=== PATIENT | female | born 1985 | race American Indian/Alaskan Native ===

== ENCOUNTER 2016-03-13 11:24 | Outpatient (CLI) | payer MEDICAID ==
[2016-03-13] MEDS ORDERED: INFED IM ONE (11:52)
[2016-03-13 12:10] VITALS: BP 124/75
== END 2016-03-13 12:45 | disposition home or self-care (01) ==
LOC: TRG 11:24
PROVIDERS: ATTEND Obstetrics & Gynecology
DX: O77.9 Labor and delivery complicated by fetal stress, unspecified (principal); O47.9 False labor, unspecified; Z3A.00 Weeks of gestation of pregnancy not specified
CPT/HCPCS: 59025; 96372; J1750

== ENCOUNTER 2016-03-18 17:07 | Outpatient (CLI) | payer MEDICAID ==
[2016-03-18] MEDS ORDERED: INFED IM ONE (19:30)
== END 2016-03-18 19:00 | disposition left against medical advice (07) ==
LOC: TRG 17:07
PROVIDERS: ATTEND Obstetrics & Gynecology
DX: Z34.90 Encounter for supervision of normal pregnancy, unspecified, unspecified trimester (principal); Z3A.00 Weeks of gestation of pregnancy not specified
CPT/HCPCS: J1750

== ENCOUNTER 2016-03-20 12:31 | Outpatient (CLI) | payer MEDICAID ==
[2016-03-20] MEDS ORDERED: INFED IM ONE (13:34)
[2016-03-20 14:04] VITALS: BP 134/74
== END 2016-03-20 14:41 | disposition home or self-care (01) ==
LOC: TRG 12:31
PROVIDERS: ATTEND Obstetrics & Gynecology
DX: O47.1 False labor at or after 37 completed weeks of gestation (principal); Z3A.37 37 weeks gestation of pregnancy
CPT/HCPCS: 96372; J1750

== ENCOUNTER 2016-03-25 11:30 | Inpatient (IN) | payer MEDICAID ==
[2016-04-01] MEDS ORDERED: BICITRA PO ONE (05:14)
[2016-04-01] MEDS ORDERED: PEPCID IV ONE (05:14)
[2016-04-01] MEDS ORDERED: REGLAN IV ONE (05:14)
[2016-04-01 05:47] LABS: Basophils % (Auto) 0.5 % (0.0-1.8); Eosinophils % (Auto) 0.6 % (0.0-4.3); Hematocrit 24.7 % (30.3-42.9); Hemoglobin 7.6 gm/dl (10.1-14.3); Mean Corpuscular HGB Conc 31 % (30-34); Platelet Count 294 K/mm3 (140-440); Red Blood Count 3.72 M/mm3 (3.65-5.03); White Blood Count 8.2 K/mm3 (4.5-11.0)
[2016-04-01 05:51] LABS: Mean Corpuscular Hemoglobin 20 pg (28-32); Mean Corpuscular Volume 67 fl (79-97); Red Cell Distribution Width 21.2 % (13.2-15.2)
[2016-04-01] MEDS ORDERED: LACTATED RINGERS 1,000 ML IV SCH (06:00)
[2016-04-01] MEDS ORDERED: PITOCin/NS 20 UNIT/1000ML DRIP 20 UNIT/1,000 ML BAG IV NR (06:00)
[2016-04-01] MEDS ORDERED: ANCEF/STERILE WATER 2 GM/20 ML 2 GM/20 ML SYRINGE IV ONE (06:52)
[2016-04-01] MEDS ORDERED: NACL 0.9% 500 ML 500 ML IV ONE ×2 (07:02→13:16)
[2016-04-01] MEDS ORDERED: NARCAN 0.4 MG/1 ML IV PRN ×2 (07:20→10:57)
[2016-04-01] MEDS ORDERED: DILAUDID IV PRN (07:20)
[2016-04-01] MEDS ORDERED: ZOFRAN IV PRN (07:20)
--- NOTE | 2016-04-01 07:20 | Anesthesia Day of Surgery ---
Anesthesia Day of Surgery - Day of Surgery Patient Examined: Yes Patient H&P Reviewed: Yes Patient is NPO: Yes
--- NOTE | 2016-04-01 07:20 | Anesthesia Consultation ---
Anesthesia Consult and Med Hx Date of service: 04/01/16 - Airway Anesthetic Teeth Evaluation: Good ROM Head & Neck: Adequate Mental/Hyoid Distance: Adequate Mallampati Class: Class II Intubation Access Assessment: Probably Good - Pre-Operative Health Status ASA Pre-Surgery Classification: ASA2 Proposed Anesthetic Plan: Epidural, Spinal - Pulmonary Hx Smoking: No Hx Asthma: No COPD: No Hx Pneumonia: No - Cardiovascular System Hx Hypertension: No - Central Nervous System Hx Seizures: No Hx Psychiatric Problems: No - Gastrointestinal Hx Gastroesophageal Reflux Disease: Yes - Endocrine Hx Renal Disease: No Hx End Stage Renal Disease: No Hx Hypothyroidism: No Hx Hyperthyroidism: No - Hematic Hx Anemia: Yes (requires iron injections) Hx Sickle Cell Disease: No - Other Systems Hx Alcohol Use: No Hx Obesity: Yes (BMI: 46.3)
[2016-04-01] MEDS ORDERED: TORADOL IV PRN (07:21)
--- NOTE | 2016-04-01 07:26 | History and Physical Report ---
History of Present Illness Date of examination: 04/01/16 Date of admission: 04/01/16 05:03 Chief complaint: 3rd repeat LTCS History of present illness: 31-year-old 013 at 39 weeks presents for 3rd repeat , she is a [employer] position. course has been complicated by microcytic anemia requiring parenteral iron. 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 denies: smoking, alcohol abuse, prescription drug abuse, IV drug use - Obstetrical History Expected Date of Delivery: 04/06/16 Actual Gestation: 39 Week(s) 2 Day(s) : 5 Para: 3 Medications and Allergies Allergies Allergy/AdvReac Type Severity Reaction Status Date / Time No Known Allergies Allergy Verified 03/20/16 13:30 Active Meds: Active Medications Hydromorphone HCl (Dilaudid) 0.5 mg IV Q4H PRN PRN Reason: breakthrough pain > 7/10 Lactated Ringer's (Lactated Ringers) 1,000 mls @ 2,250 mls/hr IV PREOP JAZMIN Last Admin: 04/01/16 05:30 Dose: 2,250 mls/hr Oxytocin/Sodium Chloride (Pitocin/Ns 20 Unit/1000ml Drip) 20 unit in 1,000 mls @ 999 mls/hr IV TITR NR Stop: 04/01/16 23:59 Ketorolac Tromethamine (Toradol) 30 mg IV Q6H PRN PRN Reason: Pain, Moderate (4-6) Stop: 04/06/16 07:20 Naloxone HCl (Narcan 0.4 Mg/1 Ml) 0.2 mg IV Q2MIN PRN PRN Reason: Res Rate </= 8 or 02 SAT < 92% Stop: 04/03/16 07:21 Ondansetron HCl (Zofran) 4 mg IV Q8H PRN PRN Reason: Nausea And Vomiting Sodium Chloride (Sodium Chloride Flush Syringe 10 Ml) 10 ml IV PRN NR Review of Systems Constitutional: no fever, no chills Cardiovascular: no chest pain, no orthopnea, no edema, no syncope, no lightheadedness, no shortness of breath, no dyspnea on exertion, no high blood pressure Respiratory: no cough with sputum, no excessive sputum, no hemoptysis, no shortness of breath, no dyspnea on exertion Gastrointestinal: abdominal pain (Intermittent contractions), no nausea, no vomiting, no diarrhea Genitourinary: no vaginal bleeding, no vaginal discharge, no leakage of fluid - Vital Signs Vital signs: Vital Signs Pulse BP Pulse Ox 86 88/63 99 03/20/16 15:06 03/20/16 15:06 03/20/16 15:06 Temp Pulse Resp BP Pulse Ox 98.7 F 93 H 18 88/63 99 04/01/16 05:15 04/01/16 05:52 04/01/16 05:15 03/20/16 15:06 04/01/16 05:52 - Physical Exam Cardiovascular: Regular rate, Normal S1, Normal S2 Lungs: Positive: Clear to auscultation Abdomen: Positive: normal appearance, soft. Negative: tenderness, guarding, rigidity Uterus: Positive: enlarged (Difficult to access due to habitus). Negative: tender Extremities: Positive: normal - Obstetrical FHR: category 1 Results Result Diagrams: 04/01/16 05:30 Abnormal lab results 04/01/16 04/01/16 Range/Units 05:30 05:30 Hgb 7.6 L (10.1-14.3) gm/dl Hct 24.7 L (30.3-42.9) % MCV 67 L (79-97) fl MCH 20 L (28-32) pg RDW 21.2 H (13.2-15.2) % Bowman % (Auto) 8.5 H (0.0-7.3) % Seg Neutrophils % 71.4 H (40.0-70.0) % Crossmatch See Detail All other labs normal. Assessment and Plan A: 31 y/o here for 3rd repeat LTCS and BTL -stable Issues -Morbid obesity -Anemia with Hemoglobin - 7.6 P: -Transfuse 2 units blood cells -She has been consented for third repeat -Proceed to the OR once available - Patient Problems (1) 39 weeks gestation of Current Visit: Yes Status: Acute (2) History of 2 sections Current Visit: Yes Status: Acute
[2016-04-01] MEDS ORDERED: MORPHINE ONE (07:39)
[2016-04-01] MEDS ORDERED: SODIUM CHLORIDE FLUSH SYRINGE 10 ML IV NR (08:00)
--- NOTE | 2016-04-01 08:32 | Admit Criteria Form ---
Admission Criteria Documentation: ANEMIA, IRON DEFICIENCY OR UNSPECIFIED Clinical Indications for Inpatient Care (Place 'X' for any and all applicable criteria): Admission is indicated for ANY ONE of the following(1)(2)(3)(4)(5)(6)(7): [X] I. Inpatient admission required rather than observation care (Also use Anemia, Iron Deficiency or Unspecified: Observation Care guideline as appropriate) because of ANY ONE of the following: [] a) Hemodynamic instability that is severe or persistent [] b) Active bleeding that cannot be rapidly controlled [] c) CVS symptoms (i.e., dyspnea, chest pain, heart failure) that are severe or persistent [] d) Neurologic symptoms (i.e., cognitive impairment, recurrent syncope or near syncope) that are severe or persistent [] e) Cardiac arrhythmias of immediate concern [] f) Acute peripheral ischemia (e.g., pulseless, cool, mottled, or cyanotic extremity) [] g) High-risk low platelet count [] h) Acute renal failure [X] i) Ongoing transfusion for blood loss (greater than 2 units) [] j) IV fluid to replace significant ongoing (eg, >24 hours) losses (> 3 L/m2 per day) [] k) Pulmonary artery catheter monitoring [] l) Supplemental oxygen or respiratory treatments for over 24 hours that are performable only in acute inpatient setting [] m) Immediate inpatient surgery [] n) Other condition, treatment or monitoring requiring inpatient admission [] II Active massive hemorrhage [] III. Active hemolysis with rapidly progressive anemia [A](6) Extended stay beyond goal length of stay may be needed for (17)(18) []a) Diagnosed cause of anemia requiring longer hospitalization (eg, active GI bleeding, immune hemolysis requiring electrophoresis, complications of malignancy requiring acute care []b) Continued emergent anemia indicators (23) []c) Transfusion reactions []d) Associated leukopenia or thrombocytopenia needing inpatient care []e) Active comorbidities (eg, renal failure, heart failure) The original [facility] Care Guidelines content created by [facility] Care Guidelines has been revised. The portions of the content which have been revised are identified through the use of italic text or in bold. [facility] Guidelines has neither reviewed nor approved the modified material. All other unmodified content is copyright [facility] Care Guidelines. Please see references footnoted in the original [facility] edition 2016 Admission Criteria Met: Yes
[2016-04-01] MEDS ORDERED: NACL 0.9% 1000 ML 1,000 ML ONE (08:35)
[2016-04-01] MEDS ORDERED: ZOFRAN ONE (08:37)
[2016-04-01] MEDS ORDERED: WATER FOR IRRIG STERILE IR ONE (08:44)
[2016-04-01] MEDS ORDERED: NACL 0.9% IR ONE (08:44)
--- NOTE | 2016-04-01 10:52 | Operative Report ---
Operative Report Operative Report: DATE: 04/01/2016 PREOPERATIVE DIAGNOSIS: 31-year-old at 39+2 weeks, prior 2, Morbid Obesity, persistent Anemia (Hemoglobin was - 7.6 pre-OP) POSTOP DIAGNOSIS: As above plus Right abnormal-looking ovary ~ 7 cm in size, Adhesions NAME OF PROCEDURE: Repeat low transverse section with bilateral tubal ligation using Filshie clips Right Oophorectomy Adhesiolysis LAXMI drain placement Transfusion of 1 unit PRBC intra-OP SURGEON: KENTRELL HOLLEY MD DUCT LAYER HELPER: [] ANESTHESIA: Combined spinal epidural EBL: 700 mL PATHOLOGY SPECIMEN: Right ovary URINE OUTPUT: 50 cc FINDINGS: Female in cephalic presentation, time of delivery was 9 AM, weight was 7 lbs. 14 oz. or 3571 g, APGARS were 8 and 8, right large ovary estimated 7 cm in size on incision, ovary with solid components. significant adhesions, large amount of bowel loops DESCRIPTION OF PROCEDURE: She was taken to the operating room where she was prepped and draped in a sterile fashion, she was placed in the dorsal supine position. Pfannenstiel incision was performed through her prior incisional scar which was carried through to underlying rectus fascia which was on the midline. The fascial incision was extended laterally with use of Salazar scissors , the anterior leaf was then grasped with Kochers forceps elevated dissected sharply and bluntly off the underlying rectus in a similar fashion inferior leaf was grasped elevated dissected sharply and bluntly off the underlying rectus. The rectus was in the midline, then the peritoneal layer entered carefully. Loops of bowel noted immediately underneath the peritoneal layer. Adhesions noted to anterior abd wall and adhesiolysis performed. Bowel was packed away with gauze to visualize the uterus. A bladder blade was then placed in the patient's pelvic cavity; bladder flap could not be created due to adhesion of the vesoci-uterine reflection of the peritoneum on the lower segment. A hysterotomy incision was then performed in the lower segment with clear amniotic fluid noted, hysterotomy icision was extended laterally with the use of fingers manually. in cephalic presentation was delivered in the usual manner; cord was clamped and cut infant was handed over to waiting nursery staff. The placenta was then delivered manually intact, the uterus was exteriorized cleared of all clots and debris. Hysterotomy incision was then closed in a running locked fashion with 0 Vicryl on a CTX; using the same suture was imbricate the initial layer. Interrupted [id number] stitches were used to obtain hemostasis. We then turned our attention to the fallopian tubes. The right fallopian tube was short compared to the left and appeared partially transected already. Using 2 Filshie clips on each fallopian tube and these were clamped with good blanching noted. Discussed patient's large ovary with her, incision made with bovie demonstrated solid components. She gave permission for oophorectom adn this was performed. Utero-ovarian was grasped with pat's and transected. This was then suture ligated. Specimen was sent to pathology. Uterus was then returned to the patient's pelvic cavity; peritoneal edges were grasped with hemostats and Pat's elevated copiously irrigation was used to clear the gutters of all clots and debris. Tercel hemostatic agent was then applied to the hysterotomy incision as a means to prevent future bleeding, Interceed was then applied into the pelvic cavity as a means to prevent future adhesions. We then observed patient with waht appeared to be clear fluid being produced. This was not bloody or sersanguinous. We spent some time attempting to discover souce of fluid generation. We used lap sponges and position changes to attempt to evacuate all her fluids. No significant bleeding was noted and bladder appeared intact with good drainage in the crespo. Decision was made to pace LAXMI drain. This was perforemed without difficulty. The fascia was then closed in a running fashion with 0 Vicryl and tied in the opposite side. The subcutaneous layer was irrigated and then reapproximated with interrupted [id number] stitches. The skin was closed with cam. She tolerated the procedure well lap and instrument counts were correct 2 she did receive 3 g of Ancef prior to incision she is transferred to PACU in stable condition thank you.
[2016-04-01] MEDS ORDERED: SENOKOT PO PRN (10:57)
[2016-04-01] MEDS ORDERED: MILK OF MAGNESIA PO PRN (10:57)
[2016-04-01] MEDS ORDERED: MYLICON PO PRN (10:57)
[2016-04-01] MEDS ORDERED: TUCKS PAD TP PRN (10:57)
[2016-04-01] MEDS ORDERED: TYLENOL PO PRN (10:57)
[2016-04-01] MEDS ORDERED: LANSINOH TP PRN (10:57)
[2016-04-01] MEDS ORDERED: SODIUM CHLORIDE FLUSH SYRINGE 10 ML IV SCH (11:00)
[2016-04-01] MEDS ORDERED: PITOCin/NS 20 UNIT/1000ML DRIP 20 UNIT/1,000 ML BAG IV SCH (13:00)
[2016-04-01] MEDS ORDERED: D5LR 1,000 ML IV SCH (13:00)
[2016-04-01] MEDS ORDERED: ANUCORT-HC PR PRN (14:00)
[2016-04-01] MEDS ORDERED: ANCEF/NS 1 GM/50 ML 1 GM/50 ML BAG IV SCH (14:00)
[2016-04-01 17:01] LABS: Hematocrit 27.1 % (30.3-42.9); Hemoglobin 8.4 gm/dl (10.1-14.3)
[2016-04-01 17:02] LABS: Hematocrit 27.5 % (30.3-42.9); Hemoglobin 8.4 gm/dl (10.1-14.3)
[2016-04-01 17:21] LABS: Alanine Aminotransferase 6 units/L (7-56); Albumin 2.8 g/dL (3.9-5); Albumin/Globulin Ratio 1.1 %; Alkaline Phosphatase 118 units/L (35-129); Anion Gap 17 mmol/L; Bilirubin,Total 1.2 mg/dL (0.1-1.2); Blood Urea Nitrogen 5 mg/dL (7-17); Calcium 8.2 mg/dL (8.4-10.2); Carbon Dioxide 21 mmol/L (22-30); Chloride 100.9 mmol/L (98-107); Glucose 68 mg/dL (65-100); Sodium 135 mmol/L (137-145); Total Protein 5.4 g/dL (6.3-8.2)
[2016-04-02 02:58] LABS: Hematocrit 24.3 % (30.3-42.9); Hemoglobin 7.4 gm/dl (10.1-14.3)
[2016-04-02] MEDS ORDERED: NACL 0.9% 500 ML 500 ML IV ONE (04:47)
--- NOTE | 2016-04-02 06:39 | Event Note ---
Date: 04/02/16 LAXMI drain volume has been decreasing since insertion. Currently draining 30 mL of yellowish fluid in over an hour. LAXMI drain pulled without incident
[2016-04-02] MEDS: PERCOCET 5/325 PO PRN ×3 (08:12→21:29)
[2016-04-02] MEDS: FEOSOL PO SCH (10:46)
[2016-04-02] MEDS: PRENATAL VITAMIN PO SCH (10:46)
--- NOTE | 2016-04-02 14:06 | Progress Note ---
Subjective Date of service: 04/02/16 Interval history: 1st POD after Patient is in the bed, comfortable. Pain is well under control. Ambulated normally. No residual neurological deficit. No anesthesia complications Objective - Constitutional Vitals: Vital Signs - 12hr 04/02/16 07:50 Temperature 98.2 F Pulse Rate [ 70 Left From Monitor] Respiratory 18 Rate Blood Pressure 110/66 [Left Arm] - Labs CBC & Chem 7: 04/02/16 02:50 04/01/16 16:15 Labs: Abnormal lab results 04/01/16 04/01/16 04/01/16 Range/Units 05:30 16:15 16:15 Hgb 8.4 L 8.4 L (10.1-14.3) gm/dl Hct 27.5 L 27.1 L (30.3-42.9) % Sodium (137-145) mmol/L Carbon Dioxide (22-30) mmol/L BUN (7-17) mg/dL Creatinine (0.7-1.2) mg/dL Calcium (8.4-10.2) mg/dL ALT (7-56) units/L Total Protein (6.3-8.2) g/dL Albumin (3.9-5) g/dL Crossmatch See Detail 04/01/16 04/01/16 04/02/16 Range/Units 16:15 16:15 02:50 Hgb 7.4 L (10.1-14.3) gm/dl Hct 24.3 L (30.3-42.9) % Sodium 135 L (137-145) mmol/L Carbon Dioxide 21 L (22-30) mmol/L BUN 5 L (7-17) mg/dL Creatinine 0.5 L (0.7-1.2) mg/dL Calcium 8.2 L (8.4-10.2) mg/dL ALT 6 L (7-56) units/L Total Protein 5.4 L (6.3-8.2) g/dL Albumin 2.9 L 2.8 L (3.9-5) g/dL Crossmatch
[2016-04-03] MEDS: MOTRIN PO PRN ×2 (02:35→14:20)
[2016-04-03] MEDS: PERCOCET 5/325 PO PRN ×3 (05:13→18:56)
[2016-04-03 09:20] LABS: Hematocrit 25.2 % (30.3-42.9); Hemoglobin 7.7 gm/dl (10.1-14.3)
[2016-04-03] MEDS: FEOSOL PO SCH (09:37)
[2016-04-03] MEDS: PRENATAL VITAMIN PO SCH (09:37)
--- NOTE | 2016-04-03 10:18 | Progress Note ---
Assessment and Plan A: POD2 S/P repeat LTCS x 3 with right ovary removal and BTL Anemia- stable and asymptomatic Pain controlled P: D/C tomorrow Continue PNV and iron supplementation for 6 weeks Follow up 1 week for incision check. Subjective - Subjective Date of service: 04/03/16 (POD) Patient reports: appetite normal, voiding normally, pain well controlled, ambulating normally, no flatus : in NICU Objective - Vital Signs Latest vital signs: Vital Signs Temp Pulse Resp BP 04/03/16 09:38 20 04/03/16 08:15 97.9 F 76 20 140/84 04/03/16 00:00 98.1 F 88 20 123/68 04/02/16 16:00 98.2 F 98 H 20 112/58 Intake and Output 04/02/16 04/03/16 04/03/16 22:59 06:59 14:59 Intake Total 600 480 Balance 600 480 Intake: Oral 480 480 Intake, Free Water 120 Other: Total, Intake Amount 240 240 # Voids Void 1 1 1 - Exam Cardiovascular: Present: Regular rate Lungs: Present: Normal air movement Abdomen: Present: normal appearance, soft, normal bowel sounds, other (LAXMI drain removed. Incision covered with bandiad, clean, dry and intact.) Uterus: Present: normal, firm, fundal height below umbilicus Extremities: Present: normal Deep Tendon Reflex Grade: Normal +2 Incision: Present: dry, intact (Ajycob in place) - Labs Labs: Abnormal lab results 04/03/16 Range/Units 08:51 Hgb 7.7 L (10.1-14.3) gm/dl Hct 25.2 L (30.3-42.9) %
--- NOTE | 2016-04-03 10:20 | Discharge Summary ---
Providers - Providers Date of Admission: 04/01/16 05:03 Date of discharge: 04/04/16 Attending physician: PARTH PERERA MD Primary care physician: PARTH PERERA MD Hospitalization Reason for admission: section Delivery: Procedure: repeat low transverse Incision: normal, dry, intact (cam) Other procedures: tubal ligation, other (Right ovary removed) complications: none Discharge diagnosis: IUP at term delivered [place] baby: female Condition at discharge: Good Disposition: DISCHARGED TO HOME OR SELFCARE Plan - Discharge Medications Prescriptions: Ibuprofen [Motrin 600 MG tab] 600 mg PO Q8H PRN #30 tablet PRN Reason: Pain Multivitamin with Iron [Multivitamins with Iron] 1 each PO DAILY #30 tablet oxyCODONE /ACETAMINOPHEN [Percocet 5/325] 1 tab PO Q6HR PRN #30 tablet PRN Reason: Pain - Provider Discharge Summary Activity: routine, no sex for 6 weeks, no heavy lifting 4 weeks, no strenuous exercise Diet: routine Instructions: routine Additional instructions: [] Smoking cessation referral if applicable(refer to patient education folder for contact #) [] Refer to [facility] Booklet Call your doctor immediately for: * Fever > 100.5 * Heavy vaginal bleeding ( >1 pad per hour) * Severe persistent headache * Shortness of breath * Reddened, hot, painful area to leg or breast * Drainage or odor from incision. * Keep incision clean and dry at all times and follow doctor's instructions regarding bathing/showering - Follow up plan
[2016-04-03] MEDS ORDERED: CORTISPORIN TP SCH (14:00)
[2016-04-04] MEDS: PERCOCET 5/325 PO PRN ×3 (00:50→12:23)
[2016-04-04] MEDS: MOTRIN PO PRN ×2 (02:40→12:23)
--- NOTE | 2016-04-04 07:48 | Event Note ---
Date: 04/04/16 Pathology about patient's path report. 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 Spoke with patient about above report, explained that is a preliminary report, final report should be back by Thursday.
[2016-04-04 15:25] VITALS: BP 122/76
== END 2016-04-04 16:00 | disposition home or self-care (01) | DRG 765 ==
LOC: APU 04-01 05:03 → OB 04-01 13:19
PROVIDERS: ADMIT Obstetrics & Gynecology; ATTEND Obstetrics & Gynecology
PROC: 10D00Z1 Extraction of Products of Conception, Low, Open Approach (ICD-10-PCS; principal; 2016-04-01)
PROC: 0UL70CZ Occlusion of Bilateral Fallopian Tubes with Extraluminal Device, Open Approach (ICD-10-PCS; 2016-04-01)
PROC: 0UT00ZZ Resection of Right Ovary, Open Approach (ICD-10-PCS; 2016-04-01)
PROC: 30233N1 Transfusion of Nonautologous Red Blood Cells into Peripheral Vein, Percutaneous Approach (ICD-10-PCS; 2016-04-01)
DX: O34.211 Maternal care for low transverse scar from previous cesarean delivery (principal); Z68.42 Body mass index [BMI] 45.0-49.9, adult; E66.01 Morbid (severe) obesity due to excess calories; O99.02 Anemia complicating childbirth; D64.9 Anemia, unspecified; O99.214 Obesity complicating childbirth; Z3A.39 39 weeks gestation of pregnancy; Z37.0 Single live birth
CPT/HCPCS: 36415; 80053; 82040; 85014; 85018; 85025; 86850; 86900; 86901; 86920; 88305; 88307; 88313; 88342; 99211; C1765; C9250; G0463; J0690; J1170; J1885; J2270; J2405; J2590; J2765; J7030; J7040; J7120; J7121; P9016

== ENCOUNTER 2019-12-14 15:25 | Observation (INO) | payer MEDICAID, OTHER ==
[2019-12-14 16:16] LABS: Mean Corpuscular HGB Conc 28 % (30-34); Platelet Count 457 K/mm3 (140-440); Red Blood Count 2.64 M/mm3 (3.65-5.03)
[2019-12-14 16:18] LABS: Mean Corpuscular Volume 58 fl (79-97); Red Cell Distribution Width 20.5 % (13.2-15.2)
[2019-12-14 16:19] LABS: Hematocrit 15.3 % (30.3-42.9); Hemoglobin 4.3 gm/dl (10.1-14.3)
[2019-12-14] MEDS ORDERED: SODIUM CHLORIDE 0.9% 500 ML 500 ML IV ONE (16:50)
--- NOTE | 2019-12-14 16:55 | Emergency Department Report ---
HPI - General Chief Complaint: Recheck/Abnormal Lab/Rx Time Seen by Provider: 12/14/19 16:29 - [facility] HPI: [facility] 26 The patient is a 34-year-old female present with a chief complaint of anemia. The patient states she had her annual visit with her KITCHEN HAND Dr. Tai yesterday and had labs drawn. The patient states she was called today and told her hemo globin was 4 she should come to the emergency department. Patient admits to shortness of breath for years and feeling fatigued for approximately 1 year. Patient states she has had dyspnea on exertion for several months. Patient denies bright red blood per rectum or melena. Patient denies hematemesis. Patient states she has heavy cycles and her LMP was 11/16/2019. Patient states she normally goes there approximately 10 pads per day for approximately 7 days. ED Past Medical Hx - Past Medical History Previous Medical History?: Yes Additional medical history: Anemia - Surgical History Past Surgical History?: Yes Additional Surgical History: C section. Tubal ligation - Family History Family history: no significant - Social History Smoking Status: Never Smoker Substance Use Type: None - Medications Home Medications: Home Medications Medication Instructions Recorded Confirmed Last Taken Type Ibuprofen [Motrin 600 MG tab] 600 mg PO Q8H PRN #30 tablet 04/01/16 Unknown Rx Multivitamin with Iron 1 each PO DAILY #30 tablet 04/01/16 Unknown Rx [Multivitamins with Iron] oxyCODONE /ACETAMINOPHEN [Percocet 1 tab PO Q6HR PRN #30 tablet 04/01/16 Unknown Rx 5/325] ED Review of Systems ROS: Stated complaint: BLOOD TRANSFUSION Other details as noted in HPI Constitutional: malaise Respiratory: SOB with exertion Endocrine: no symptoms reported Gastrointestinal: denies: hematemesis, melena, hematochezia Genitourinary: abnormal menses Hematological/Lymphatic: other (Fatigue) Physical Exam - Physical Exam Vital Signs: Vital Signs 12/14/19 15:31 Temperature 97.4 F L Pulse Rate 94 H Respiratory 18 Rate Blood Pressure 127/62 O2 Sat by Pulse 100 Oximetry Physical Exam: GENERAL: The patient is well-developed well-nourished female lying on stretcher not appearing to be in acute distress. [] HEENT: Normocephalic. Atraumatic. Extraocular motions are intact. Patient has moist mucous membranes. NECK: Supple. Trachea midline CHEST/LUNGS: Clear to auscultation. There is no respiratory distress noted. HEART/CARDIOVASCULAR: Regular. There is no tachycardia. There is no gallop rub or murmur. ABDOMEN: Abdomen is soft, nontender. Patient has normal bowel sounds. There is no abdominal distention. SKIN: There is no rash. There is no edema. There is no diaphoresis. NEURO: The patient is awake, alert, and oriented. The patient is cooperative. The patient has normal speech MUSCULOSKELETAL: There is no evidence of acute injury. ED Course Vital Signs 12/14/19 15:31 Temperature 97.4 F L Pulse Rate 94 H Respiratory 18 Rate Blood Pressure 127/62 O2 Sat by Pulse 100 Oximetry - Consultations Consultation #1: 12/14/19 16:57 KITCHEN HAND paged 12/14/19 17:[address] Hernandez- requests hospitalist admit and they will consult ED Medical Decision Making - Lab Data Result diagrams: 12/14/19 15:45 Laboratory Tests 12/14/19 12/14/19 15:45 15:45 WBC 4.9 RBC 2.64 L Hgb 4.3 L* Hct 15.3 L* MCV 58 L MCH 16 L MCHC 28 L RDW 20.5 H Plt Count 457 H Blood Type A NEGATIVE Antibody Screen Negative Crossmatch See Detail - Differential Diagnosis Symptomatic anemia Critical care attestation.: If time is entered above; I have spent that time in minutes in the direct care of this critically ill patient, excluding procedure time. ED Disposition Clinical Impression: Symptomatic anemia, Menorrhagia Disposition: - OP ADMIT IP TO THIS HOSP Is pt being admited?: Yes Does the pt Need Aspirin: No Condition: Stable Referrals: PRIMARY CARE, [Primary Care Provider] - 3-5 Days Time of Disposition: 17:40 (Hospitalist paged (Dr. Myers))
[2019-12-14] MEDS ORDERED: ACETAMINOPHEN 500 MG TAB PO ONE (19:56)
[2019-12-14] MEDS ORDERED: diphenhydrAMINE 25 MG CAP PO SCH (20:00)
[2019-12-14] MEDS ORDERED: SODIUM CHLORIDE 0.9% 1000 ML 1,000 ML IV SCH (22:30)
[2019-12-15 11:08] LABS: Hematocrit 25.2 % (30.3-42.9); Hemoglobin 7.6 gm/dl (10.1-14.3)
--- NOTE | 2019-12-15 11:52 | Event Note ---
Date: 12/15/19 hgn up to 7.6 after 3 units PRBCs. No active VB. Vitals are stable. Will send pt home with iron and RTO next week to discuss future tx of menses.
[2019-12-15] MEDS ORDERED: FLU VACC QUAD 2020-2021 (6 months +)/PF 60 0.5 ML SYRINGE IM ONE (12:00)
[2019-12-15 13:15] VITALS: BP 127/84
== END 2019-12-15 13:20 | disposition home or self-care (01) ==
LOC: ED 15:25 → 3A 17:41 → OB 19:08
PROVIDERS: ADMIT Internal Medicine; ATTEND Obstetrics & Gynecology
DX: N92.0 Excessive and frequent menstruation with regular cycle (principal); D64.9 Anemia, unspecified; Z98.51 Tubal ligation status; Z98.891 History of uterine scar from previous surgery
CPT/HCPCS: 36415; 36430; 85014; 85018; 85027; 86850; 86900; 86901; 86920; 99285; G0378; J7040; P9016

== ENCOUNTER 2020-10-15 11:42 | Emergency (ER) | payer OTHER ==
--- NOTE | 2020-10-15 12:40 | Emergency Department Report ---
Blank Doc - Documentation Documentation: 35-year-old female that presents with chest pain and shortness of breath with radiation to back. 1- This is a initial triage assessment/medical screening only. Full assessment and work-up will be completed once the patient is in proper hospital gown, ED bed and in a private room setting. This initial assessment/diagnostic orders/clinical plan/ treatment(s) is/are subject to change based on pt's health status, clinical progression and re-assessment by fellow clinical providers in the ED. Further treatment and workup at subsequent clinical providers discretion. Patient/guardians urged not to elope from ED as their condition may be serious if not clinically assessed and managed. 2-cardiac work-up
[2020-10-15 12:41] VITALS: BP 134/82
[2020-10-15 13:13] LABS: Basophils # (Auto) 0.1 K/mm3 (0.0-0.1); Basophils % (Auto) 0.9 % (0.0-1.8); Eosinophils # (Auto) 0.1 K/mm3 (0.0-0.4); Hematocrit 21.8 % (30.3-42.9); Hemoglobin 6.4 gm/dl (10.1-14.3); Lymphocytes # (Auto) 1.4 K/mm3 (1.2-5.4); Lymphocytes % (Auto) 21.3 % (13.4-35.0); Mean Corpuscular HGB Conc 30 % (30-34); Monocytes # (Auto) 0.5 K/mm3 (0.0-0.8); Monocytes % (Auto) 8.3 % (0.0-7.3); Platelet Count 363 K/mm3 (140-440); Red Blood Count 3.64 M/mm3 (3.65-5.03)
--- NOTE | 2020-10-15 13:14 | XRay Report ---
CHEST 2 VIEWS INDICATION: Chest Pain. COMPARISON: None. FINDINGS: Support devices: None. Heart: Borderline. Lungs/Pleura: No acute air space or interstitial disease. No significant pleural effusion. IMPRESSION: Borderline heart size. Signer Name: Wes Membreno MD Signed: 10/15/2020 1:10 PM Workstation Name: [id number]
[2020-10-15 13:29] LABS: INR 1.02 (0.87-1.13)
[2020-10-15 13:30] LABS: Partial Thromboplastin Time 29.2 Sec. (24.2-36.6)
[2020-10-15 13:35] LABS: Alanine Aminotransferase 38 units/L (7-56); Albumin 4.3 g/dL (3.9-5); Blood Urea Nitrogen 9 mg/dL (7-17); Calcium 8.7 mg/dL (8.4-10.2); Hemolysis Index 0
[2020-10-15 13:36] LABS: BUN/Creatinine Ratio 15
[2020-10-15 13:40] LABS: Mean Corpuscular Volume 60 fl (79-97); Red Cell Distribution Width 20.2 % (13.2-15.2)
--- NOTE | 2020-10-16 10:04 | Electrocardiograph Report ---
[facility] Test Date: 2020-10-15 Test Time: 12:43:07 Pat Name: SHIMON ANNE Department: Room: Gender: F Director Pharmacology: : 1985 Requested By: DANIEL RIZVI Order Number: [id number] Reading MD: Devin Chacko Measurements Intervals [place] Rate: 76 P: 31 LA: 139 QRS: 51 QRSD: 77 T: 40 QT: 393 QTc: 443 Interpretive Statements Sinus rhythm No previous ECG available for comparison Electronically Signed On 10-16-2020 10:04:01 EDT by Devin Chacko
== END 2020-10-15 18:56 | disposition left against medical advice (07) ==
LOC: ED 11:42
DX: R07.9 Chest pain, unspecified (principal); Z53.21 Procedure and treatment not carried out due to patient leaving prior to being seen by health care provider
CPT/HCPCS: 36415; 71046; 80053; 84484; 84703; 85025; 85610; 85730; 93005